=== PATIENT | male | born 1960 | race Caucasian/White ===

== ENCOUNTER 2017-12-23 11:59 | Day surgery (SDC) | payer OTHER, SELFPAY ==
[2017-12-23] VITALS (7 sets, daily range): BP systolic 105–131; BP diastolic 75–84; PULSE 52–58; RESP 10–18; TEMP 36.2–36.9; O2SAT 95–98; BMI 31.5
--- NOTE | 2017-12-23 | DI.RAD.S_ITS ---
PROCEDURE: FL ABDOMEN 1V (BARIUM ENEMA) INDICATIONS: incomplete colonscopy, pt is prepped now TECHNIQUE: One view of the abdomen acquired. COMPARISON: None. FINDINGS: Surgical changes and devices: Status post appendectomy. Bowel: Colon is filled in retrograde manner with single contrast barium, flowing readily without holdup or obstruction. The right hemicolon is free on a mesentery, minimal reflux into the terminal ileum documenting complete filling of the large intestine. There are scattered diverticula such as a 12 mm anti-mesenteric diverticulum in the mid ascending colon and 2 or 3 8 mm diverticula /in the mid sigmoid colon. No evidence of diverticulitis or other inflammatory change. No polypoid filling defects, extrinsic mass effect or constricting lesion. Evacuation was incomplete. Soft tissues: No suspicious abdominal calcifications. Visualized solid organ contours appear normal in size. Bones: No suspicious bony lesions. IMPRESSION: Minimal diverticulosis, otherwise normal barium enema Dictated by: Tavon Hearn M.D. on 12/23/2017 at 15:54 Approved by: Tavon Hearn M.D. on 12/23/2017 at 16:00
[2017-12-23] MEDS: SODIUM CHLORIDE 0.9% 1,000 ML 200 ML IV (12:35)
[2017-12-23] MEDS: MIDAZOLAM 5 MG/5 ML VIAL IV ×2 (13:50→13:51)
[2017-12-23] MEDS: fentaNYL 250 MCG/5 ML INJ IV (13:52)
--- NOTE | 2017-12-23 14:34 | PM.OP.ENDO ---
Operative Date/Time/Diagnoses Date of procedure: 12/23/17 Time of procedure: 13:19 Pre-op diagnosis: Screening colonoscopy Post-op diagnosis: other (Sigmoid diverticulosis, internal and external hemorrhoids) Procedure & Clinicians Study performed: Screening colonoscopy Same procedure as scheduled: Yes Indications: Appropriate age for screening for malignancy large bowel Surgeon: Cyrus Guerrier Procedure Notes SCOAP/Timeout: yes Procedure in detail: After informed consent was obtained including risk of perforation, bleeding, missed lesion, injury to colon or airway the patient was taken to the endoscopy suite and safety time-out was completed. Patient was placed in a left lateral decubitus position and digital rectal exam showed external hemorrhoids. A well lubricated colonoscope was now placed in the anus and I proceeded to drive it to the descending colon. The patient required 10 mg of Versed and 250 mcg of fentanyl and was still bearing down and it took 3 people including a large male nurse to help restrain the patient. He was placed on his back on his left lateral side and pressure on his abdomen was obtained and a large loop in the colonoscope had also been very challenging to under referral with the patient bearing down. Our anesthesiology colleagues was called in and propofol was given which did help decrease the patient's bearing down. However, the colonoscopy was now a boarded due to the large scope loop and difficulty in feeding the scope past the descending colon. There was no findings except for mild diverticulosis in the sigmoid colon. The scope was now withdrawn and on retroflexion significant internal hemorrhoids were now seen without evidence of bleeding. The patient was then sent to the PACU, awake in and stable. He denied any abdominal pain and then was sent for a barium enema to evaluate his cecum.
--- NOTE | 2017-12-23 14:35 | SUR.PHASEII ---
pt transported to x-ray for barium enema at 1432.
--- NOTE | 2017-12-23 15:36 | SUR.PHASEII ---
Pt arrived to outpatient awake and alert. Pt denies any complaints. pt came back from X-ray. Had a barium enema.
--- NOTE | 2018-01-02 11:24 | PM.HP.1 ---
History of Present Illness Date Patient Seen: 12/23/17 Time Patient Seen: 10:25 Chief complaint: Preop colonoscopy screening for malignancy Narrative: Patient is a very healthy 57 yo male with minimal symptoms who is in need of screening colonoscopy. He does NOT eat a diet high in fiber. eats a lot of high protein bars and works out on the elliptical. Sits at desk. IN good physical condition. Patient History Family & Social History Social History: household members spouse Meds Allergies Allergy/AdvReac Type Severity Reaction Status Date / Time No Known Allergies Allergy Uncoded 09/07/17 12:41 Review of Systems Review of Systems All systems reviewed & are unremarkable except as noted in HPI and below Exam Vital Signs (past 8 hours): Oxygen Delivery Method Room Air Narrative Exam Narrative: Pleasant, interactive alert oriented x3 Anicteric sclera Atraumatic Chest symmetric clear to auscultation bilaterally Heart regular rate and rhythm no murmur rub or gallop Abdomen soft nontender nondistended positive bowel sounds Extremities warm well perfused moves all extremities nonfocal neurologic findings. Skin is normal Psych is normal. Assessment & Plan Plan: Assessment/Plan Narrative: Colonoscopy for screening.
== END 2017-12-23 15:50 | disposition home or self-care (01) ==
PROVIDERS: Surgery; Family Provider Internal Medicine; PCP Internal Medicine; Visit Provider Specialist
PROC: 0DJD8ZZ Inspection of Lower Intestinal Tract, Via Natural or Artificial Opening Endoscopic (ICD-10-PCS; CPT 45378; principal; 2017-12-23 15:00)
DX: Z12.11 Encounter for screening for malignant neoplasm of colon (principal); K57.30 Diverticulosis of large intestine without perforation or abscess without bleeding; K64.8 Other hemorrhoids; K64.4 Residual hemorrhoidal skin tags
CPT/HCPCS: 45330; 45378; 74018; 74270; J2250; J3010

== ENCOUNTER → 2022-07-18 09:05 | Outpatient (CLI) | payer OTHER, SELFPAY ==
--- NOTE | 2022-07-18 09:07 | DI.MRI.S_ITS ---
PROCEDURE: MR HAND LT WO/W CON INDICATIONS: MASS OF LEFT HAND TECHNIQUE: Noncontrast coronal T1 spin echo and T2 fast spin echo with fat saturation, axial proton density fast spin echo and T2 fast spin echo with fat saturation, axial T1 spin echo with fat saturation, sagittal T1 spin echo and STIR through the hand and fingers. Post-contrast axial, coronal, and sagittal T1 spin echo through the hand and fingers. COMPARISON: [facility], CR, XR HAND 3+ VIEWS LEFT, 07/05/2022, 10:38. FINDINGS: Image quality: Excellent. Bones: The bones are normally aligned, without marrow contusions or fractures. No intra-osseous lesions. Soft tissues: In the subcutaneous tissues of the volar aspect of the hand adjacent to the 4th proximal phalangeal base and extending into the interspace between the 4th and 5th fingers, there is a homogeneously hyperenhancing mass measuring approximately 3.4 x 2.2 x 3.3 cm. The mass is circumscribed margins without obvious invasion of adjacent structures. Increased number of blood vessels are seen surrounding the mass, suspicious for hypervascularity. No additional enhancing soft tissue mass is seen in the remainder of the hand. The adjacent 4th and 5th flexor tendons remain intact. The remaining visualized flexor and extensor tendons are intact. No muscular invasion is seen. The musculature of the hand is normal in signal intensity and bulk. IMPRESSION: Circumscribed 3.4 cm homogeneously hyperenhancing soft tissue mass is seen in the subcutaneous tissues at the volar aspect of the hand adjacent to the 4th proximal phalanx extending into the webspace between the 4th and 5th fingers. No invasion of adjacent structures is seen. Increased number of surrounding blood vessels suggests possible hypervascularity. Differential considerations include both benign and malignant soft tissue masses such as peripheral nerve sheath tumor or synovial cell sarcoma. Approved by: Babatunde Ibarra M.D. on 07/19/2022 at 10:35
== END ==
PROVIDERS: Family Provider Internal Medicine; PCP Physician Assistant; Referring Provider Orthopaedic Surgery; Visit Provider Orthopaedic Surgery
DX: R22.32 Localized swelling, mass and lump, left upper limb (principal)
CPT/HCPCS: 73220; A9579